=== PATIENT | female | born 1970 | race Caucasian/White ===

== ENCOUNTER 2021-11-22 15:03 | Inpatient (IN) | payer OTHER ==
[~2021-11-22] VITALS: Ht 162.6 cm; Wt 64.4 kg
[~2021-11-22 15:03] MED LIST: TYLENOL-CODEINE1 TAB PO
[2021-11-22] MEDS ORDERED: LAMICTAL200 M1 PO (15:19)
[2021-11-22] MEDS ORDERED: KEPPRA500 MG PO (15:19)
[2021-11-23] MEDS ORDERED: CRYSELLE-28 TA1 EACH (13:11)
[2021-11-23] MEDS ORDERED: CLOTRIMAZOLE-BE15 G1 (13:11)
== END 2021-11-25 15:40 | disposition home or self-care (01) | DRG 761 ==
LOC: ER 15:03 → OB/GYN 22:49
PROVIDERS: ADMIT Obstetrics & Gynecology; ATTEND Obstetrics & Gynecology
DX: N93.8 Other specified abnormal uterine and vaginal bleeding (principal); R10.2 Pelvic and perineal pain; N94.6 Dysmenorrhea, unspecified

== ENCOUNTER 2022-05-27 08:03 | Inpatient (IN) | payer OTHER ==
[~2022-05-27] VITALS: Ht 162.6 cm; Wt 64.4 kg
[~2022-05-27 08:03] MED LIST changes: +CLOTRIMAZOLE-BE15 G1; +CRYSELLE-28 TA1 EACH; +KEPPRA500 MG PO; +LAMICTAL200 M1 PO
[2022-06-03] MEDS ORDERED: MEDROXYPROGESTE10 MG (08:06)
[2022-06-03] MEDS ORDERED: DICLOFENAC SOD100 GM (08:07)
[2022-06-03] MEDS ORDERED: CRYSELLE-28 TA1 EACH (08:07)
[2022-06-03] MEDS ORDERED: OXYC1TAB9 PO (09:00)
[2022-06-03] MEDS ORDERED: IBU600 MG PO (09:00)
[2022-06-03] MEDS ORDERED: PEPCID AC20 MG PO (09:01)
== END 2022-06-03 10:35 | disposition home or self-care (01) | DRG 743 ==
LOC: O/R 06-02 06:30 → SURG 06-02 08:02 → OB/GYN 06-02 13:04
PROVIDERS: ADMIT Obstetrics & Gynecology; ATTEND Obstetrics & Gynecology
PROC: 0UT7FZZ Resection of Bilateral Fallopian Tubes, Via Natural or Artificial Opening With Percutaneous Endoscopic Assistance (ICD-10-PCS; 2022-06-02)
PROC: 0TJB8ZZ Inspection of Bladder, Via Natural or Artificial Opening Endoscopic (ICD-10-PCS; 2022-06-02)
PROC: 0UT9FZZ Resection of Uterus, Via Natural or Artificial Opening With Percutaneous Endoscopic Assistance (ICD-10-PCS; principal; 2022-06-02 08:30)
DX: N80.0 Endometriosis of uterus (principal); N72 Inflammatory disease of cervix uteri; Z20.822 Contact with and (suspected) exposure to COVID-19